=== PATIENT | female | born 1950 | race Caucasian/White ===

== ENCOUNTER → 2018-10-21 | Outpatient (CLI) | payer MEDICARE, BC ==
--- NOTE | 2018-10-21 15:09 | RADIOLOGY REPORT (SQ) ---
EXAM DESCRIPTION: MRI LT UPPER JOINT WITHOUT COMPLETED DATE/TIME: 10/21/2018 2:37 pm REASON FOR STUDY: PAIN IN LEFT SHOULDER (M25.512) M25.512 PAIN IN LEFT SHOULDER COMPARISON: None. TECHNIQUE: Left shoulder images acquired and stored on PACS. Multiplanar imaging to include fat sens itive sequences such as T1, water sensitive sequences such as FST2/STIR, cartilage sensitive sequence s such as FSPD/gradient-echo sequences. LIMITATIONS: Motion. FINDINGS: BONE MARROW AND CORTEX: Subchondral edema in the humeral head and neck. Subchondral cyst formation humeral head. JOINT OR BURSAL EFFUSION: Small glenohumeral joint effusion. GLENO-HUMERAL ARTICULATION: Shallow glenoid. Extensive subchondral cyst formation in the glenoid. ACROMION AND AC JOINT: Type 2 acromion. Mild AC joint arthropathy. ROTATOR CUFF AND INTERVAL: Tendinosis. No significant tear identified. Rotator interval thickening and fibrosis. LABRUM AND BICEPS LABRAL COMPLEX: Intact. REMAINDER OF LABRUM AND IGHL : The degenerative change. Torn posterior inferior labrum. PERIARTICULAR AND ADJACENT SOFT TISSUES: No masses or abnormal nodes. OTHER: No other significant finding. IMPRESSION: 1. Advanced glenohumeral joint arthropathy with loose bodies and subchondral edema. Thickening and f ibrosis in the rotator interval. 2. Mild tendinosis of the cuff without significant cuff tear. 3. Posterior inferior labral tear. TECHNICAL DOCUMENTATION: JOB ID: [id number] [employer]- All Rights Reserved Reading location - IP/workstation name: [email or web address]
== END ==
LOC: RAD 13:31
PROVIDERS: ATTEND Physician Assistant
DX: M25.512 Pain in left shoulder (principal)

== ENCOUNTER → 2019-02-25 | Outpatient (CLI) | payer MEDICARE, BC ==
--- NOTE | 2019-02-25 14:57 | RADIOLOGY REPORT (SQ) ---
EXAM DESCRIPTION: VENOUS UNILATERAL UPPER COMPLETED DATE/TIME: 02/25/2019 2:48 pm REASON FOR STUDY: LUE SWELLING R22.32 LOCALIZED SWELLING, MASS AND LUMP, LEFT UPPER LIMB COMPARISON: None. TECHNIQUE: Dynamic and static kumar scale and color images acquired of the left arm venous system. Se lected spectral images acquired with additional compression and augmentation maneuvers. The contralat eral subclavian vein and internal jugular vein were also imaged. Images stored on PACS. LIMITATIONS: None. FINDINGS: INTERNAL JUGULAR VEIN: Normal phasicity, compression, augmentation. No visualized echogeni c material on kumar scale. No defects on color images. Comparison opposite side normal. SUBCLAVIAN VEIN: Normal compression, augmentation. No visualized echogenic material on kumar scale. No defects on color images. AXILLARY VEIN: Normal compression, augmentation. No visualized echogenic material on kumar scale. No d efects on color images. BRACHIAL VEIN: Normal compression, augmentation. No visualized echogenic material on kumar scale. No d efects on color images. BASILIC VEIN: Normal compression, augmentation. No visualized echogenic material on kumar scale. No de fects on color images. CEPHALIC VEIN: Normal compression, augmentation. No visualized echogenic material on kumar scale. No d efects on color images. OTHER: No other significant finding. CONTRALATERAL SUBCLAVIAN VEIN AND INTERNAL JUGULAR VEIN: Normal phasicity, compression and augmentation. No visualized echogenic material on kumar scale. No de fects on color images. IMPRESSION: NO EVIDENCE DVT OR SVT LEFT ARM. TECHNICAL DOCUMENTATION: JOB ID: [id number] [employer]- All Rights Reserved Reading location - IP/workstation name: [email or web address]
== END ==
LOC: SP 12:28
PROVIDERS: ATTEND Physician Assistant
DX: R22.32 Localized swelling, mass and lump, left upper limb (principal)
CPT/HCPCS: 93971

== ENCOUNTER → 2020-04-05 | Outpatient (CLI) | payer MEDICARE, BC ==
--- NOTE | 2020-04-05 11:28 | RADIOLOGY REPORT (SQ) ---
EXAM DESCRIPTION: MRI CERVICAL SPINE WITHOUT IMAGES COMPLETED DATE/TIME: 04/05/2020 11:11 am REASON FOR STUDY: OTHER CERVICAL DISC DEGENERATION, [facility] CERVICAL REGION M50.30 OTHER CERVICAL DISC DEGENERATION, [facility]NS CERVICAL REGIO COMPARISON: CT cervical spine dated 08/16/2014 TECHNIQUE: Sagittal and Axial imaging includes T1, T2, STIR and gradient echo sequences. LIMITATIONS: None. FINDINGS: ALIGNMENT: Grade 1 anterolisthesis of C4 on C5. This is stable. VERTEBRAE: Intact. BONE MARROW: Normal. No marrow replacement or reactive changes. DISCS: Prior fusion at C5-C6. Multilevel desiccation. HARDWARE: None in the spine. CORD AND BASE OF BRAIN: Normal in size and signal intensity. SOFT TISSUES: No soft tissue masses. C1-C2: No significant spinal stenosis. C2-C3: No significant spinal stenosis or exit foraminal stenosis. C3-C4: Disc space narrowing with mild central canal narrowing. There is bilateral foraminal narrowin g. Changes secondary to disc/osteophyte complex. C4-C5: Broad-based disc/ osteophyte complex and facet hypertrophy. This results in moderate central stenosis and bilateral foraminal stenosis. C5-C6: Prior fusion. Moderate central stenosis and bilateral foraminal narrowing. C6-C7: No significant spinal stenosis or exit foraminal stenosis. C7-T1: No significant spinal stenosis or exit foraminal stenosis. UPPER THORACIC: Incompletely imaged. No significant spinal stenosis or exit foraminal stenosis. OTHER: No other significant finding. IMPRESSION: 1. Multilevel spondylosis. 2. Broad-based disc/ osteophyte complex at C3-4 with mild central canal narrowing and bilateral fora elroy stenosis. 3. Broad-based disc/ osteophyte complex at C4-5 with moderate central stenosis and bilateral foramin al stenosis. 4. Prior fusion at C5-C6. Moderate residual central stenosis and bilateral foraminal narrowing. TECHNICAL DOCUMENTATION: JOB ID: [id number] 2010 [employer]- All Rights Reserved Reading location - IP/workstation name: [email or web address]
== END ==
LOC: RAD 10:35
PROVIDERS: ATTEND Physician Assistant
DX: M50.30 Other cervical disc degeneration, unspecified cervical region (principal); M50.321 Other cervical disc degeneration at C4-C5 level; M48.02 Spinal stenosis, cervical region
CPT/HCPCS: 72141